=== PATIENT | male | born 1985 | race African-American/Black ===

== ENCOUNTER 2016-06-20 22:06 | Emergency (ER) | payer SELFPAY ==
[~2016-06-20] VITALS: Ht 170.2 cm; Wt 88.0 kg
[~2016-06-20 22:06] MED LIST: PERC5TAB12 PO
[2016-06-20 22:08] VITALS: BP 153/96; PULSE 82; RESP 16; TEMP 98.1; O2SAT 96
[2016-06-20] MEDS ORDERED: SODIUM CHLOR 0.9% 1000 ML INJ 1,000 ML IV ONE (22:31)
[2016-06-20] MEDS ORDERED: MORPHINE SULFATE 8 MG/ML INJ IV PUSH ONE (22:45)
[2016-06-20] MEDS ORDERED: SODIUM CHLORIDE 0.9% FLUSH 5 ML FLUSH IVF PRN (22:45)
[2016-06-20 22:56] VITALS: RESP 18; O2SAT 98
[2016-06-20 23:04] VITALS: RESP 16
[2016-06-20 23:22] LABS: AUTOMATED NEUTROPHIL # 4.2 TH/MM3 (1.8-7.7); BASOPHIL % 0.5 % (0.0-2.0); BLOOD, URINE NEG (NEG); COMMENT (UR) CULT NOT INDICATED; CULTURE IF INDICATED CULT NOT INDICATED; EOSINOPHIL # 0.2 TH/MM3 (0-0.4); EOSINOPHIL % 2.5 % (0.0-4.0); GLUCOSE,URINE NEG (NEG); HEMATOCRIT 43.4 % (39.0-51.0); HEMO FLAGS DIFF FINAL; KETONE, URINE NEG (NEG); LYMPH % 34.9 % (9.0-44.0); LYMPHOCYTE # 2.7 TH/MM3 (1.0-4.8); MEAN CELL VOLUME 80.2 FL (80.0-100.0); MEAN CORPUSCULAR HEMOGLOBIN 27.3 PG (27.0-34.0); MONO % 8.1 % (0.0-8.0); MUCUS URINE FEW /lpf (OCC); NITRITE,URINE NEG (NEG); PLATELET COUNT 357 TH/MM3 (150-450); RED CELL DISTRIBUTION WIDTH 14.3 % (11.6-17.2); RETIC % 1.3 % (0.4-3.0); REVIEW FLAG FINAL; URINE COLOR LIGHT-YELLOW (YELLW/STRAW); WHITE BLOOD COUNT 7.8 TH/MM3 (4.0-11.0)
--- NOTE | 2016-06-20 23:33 | RADRPT ---
EXAM DATE/TIME: 06/20/2016 23:23 [facility] COMPARISON: CHEST PA & LAT, April 08, 2016, 16:22. INDICATIONS : Lifelong right flank pain worse during a Sickle Cell Crisis. MEDICAL HISTORY : Sickle Cell disease. SURGICAL HISTORY : None. ENCOUNTER: Initial ACUITY: >1 year PAIN SCORE: 5/10 LOCATION: Right flank FINDINGS: PA and lateral views of the chest demonstrate the lungs to be symmetrically aerated without evidence of mass, infiltrate or effusion. The cardiomediastinal contours are unremarkable. Osseous structure s are intact. CONCLUSION: No acute cardiopulmonary disease. Cornelius Kerr MD on June 20, 2016 at 23:31 Board Certified Radiologist. This report was verified electronically.
[2016-06-20 23:39] LABS: ALT (GPT) 19 U/L (12-78); ANION GAP 7 MEQ/L (5-15); AST (GOT) 10 U/L (15-37); BICARBONATE 28.8 MEQ/L (21.0-32.0); BLOOD UREA NITROGEN 8 MG/DL (7-18); CHLORIDE 108 MEQ/L (98-107); GLOMERULAR FILTRATION RATE 125 ML/MIN (>89); POTASSIUM 3.7 MEQ/L (3.5-5.1); SODIUM (NA) 144 MEQ/L (136-145)
[2016-06-20 23:41] LABS: ALKALINE PHOSPHATASE 107 U/L (45-117); TOTAL BILIRUBIN ADULT 0.2 MG/DL (0.2-1.0)
--- NOTE | 2016-06-20 23:45 | RADRPT ---
EXAM DATE/TIME: 06/20/2016 23:06 [facility] COMPARISON: No previous studies available for comparison. INDICATIONS : Right upper quadrant pain. MEDICAL HISTORY : Sickle Cell disease. Asthma. SURGICAL HISTORY : None. ENCOUNTER: Initial ACUITY: 1 day PAIN SCORE: 6/10 LOCATION: Right upper quadrant MEASUREMENTS: LIVER: 16.8 cm length COMMON DUCT: 5 mm RIGHT KIDNEY: 10.1 x 5.1 x 5.4 cm FINDINGS: LIVER: There is a focal hyperechogenic area in the left lobe which demonstrates acoustic shadowing and measu res 1.3 11.4 x 1.3 cm. No flow seen on color Doppler. The remainder of the hepatic parenchyma has a homogeneous echotexture. Hepatopedal flow in the portal vein. No dilation of the biliary ducts. COMMON DUCT: No intraluminal mass or stone visualized. GALLBLADDER: Contains no stones, demonstrates no wall thickening or pericholecystic fluid. PANCREAS: The visualized portions of the head and body has a fairly homogeneous echotexture. RIGHT KIDNEY: No evidence of hydronephrosis, stone, or mass. CONCLUSION: 1. No gallstones seen. 2. Focal echogenic and shadowing area in the left lobe liver of uncertain significance. Cornelius Kerr MD on June 20, 2016 at 23:41 Board Certified Radiologist. This report was verified electronically.
--- NOTE | 2016-06-20 23:47 | PD ---
HPI Chief Complaint: Sickle Cell Time Seen by Provider: 22:31 Travel History International Travel<30 days: No Contact w/Intl Traveler<30days: No Traveled to known affect area: No History of Present Illness HPI 31-year-old male presents with right sided upper abdominal pain and pain to his legs that feels typical of his sickle cell disease. He states he gets triggered when the weather is cold. He denies other concurrent complaints at this time. Quality pain is sharp. Severity is moderate. He denies specific modifying factors. It is been present over the past couple days. PFSH Past Medical History Asthma: Yes Respiratory: Yes (ASTHMA) Immunizations Current: No Sickle Cell Disease: Yes Past Surgical History Surgical History: No Previous Surgery Social History Alcohol Use: Yes (on occasion) Tobacco Use: Yes (0.5 ppd) Substance Use: No Allergies-Medications (Allergen,Severity, Reaction): Coded Allergies: No Known Allergies (Unverified , 06/20/16) Reported Meds & Prescriptions Reported Meds & Active Scripts Active Review of Systems Except as stated in HPI: all other systems reviewed are Neg Physical Exam Narrative GENERAL: Well-nourished, well-developed patient. SKIN: Warm and dry. HEAD: Normocephalic and atraumatic. EYES: No injection or drainage. ENT: No nasal drainage noted. NECK: Supple, trachea midline. CARDIOVASCULAR: Regular rate and rhythm RESPIRATORY: Breath sounds equal bilaterally. No accessory muscle use. GASTROINTESTINAL: Abdomen soft, mild tenderness right upper quadrant, nondistended. No rebound or guarding EXTREMITIES: No edema. NEUROLOGICAL: Awake and alert. Motor and sensory grossly within normal limits. Normal speech. Data Data Last Documented VS Vital Signs Date Time Temp Pulse Resp B/P Pulse Ox O2 Delivery O2 Flow Rate FiO2 06/20/16 23:04 16 06/20/16 22:56 98 Room Air 06/20/16 22:08 98.1 82 153/96 Orders Complete Blood Count With Diff (06/20/16 22:31) Retic Count (06/20/16 22:31) Ecg Monitoring (06/20/16 22:31) Iv Access Insert/Monitor (06/20/16 22:31) Oximetry (06/20/16 22:31) Sodium Chloride 0.9% Flush (Ns Flush) (06/20/16 22:45) Sodium Chlor 0.9% 1000 Ml Inj (Ns 1000 M (06/20/16 22:31) Morphine Inj (Morphine Inj) (06/20/16 22:45) Comprehensive Metabolic Panel (06/20/16 22:36) Urinalysis - C+S If Indicated (06/20/16 22:36) Lipase (06/20/16 22:36) Us Abdomen Gallbladder (06/20/16 ) Chest, Pa & Lat (06/20/16 ) Labs Laboratory Tests Test 06/20/16 22:55 White Blood Count 7.8 TH/MM3 Red Blood Count 5.40 MIL/MM3 Hemoglobin 14.7 GM/DL Hematocrit 43.4 % Mean Corpuscular Volume 80.2 FL Mean Corpuscular Hemoglobin 27.3 PG Mean Corpuscular Hemoglobin 34.0 % Concent Red Cell Distribution Width 14.3 % Platelet Count 357 TH/MM3 Mean Platelet Volume 8.4 FL Neutrophils (%) (Auto) 54.0 % Lymphocytes (%) (Auto) 34.9 % Monocytes (%) (Auto) 8.1 % Eosinophils (%) (Auto) 2.5 % Basophils (%) (Auto) 0.5 % Neutrophils # (Auto) 4.2 TH/MM3 Lymphocytes # (Auto) 2.7 TH/MM3 Monocytes # (Auto) 0.6 TH/MM3 Eosinophils # (Auto) 0.2 TH/MM3 Basophils # (Auto) 0.0 TH/MM3 CBC Comment DIFF FINAL Differential Comment Reticulocyte Count 1.3 % Absolute Reticulocyte Count 67.3 MIL/L Urine Color LIGHT-YELLOW Urine Turbidity CLEAR Urine pH 6.0 Urine Specific [place] 1.011 Urine Protein NEG mg/dL Urine Glucose (UA) NEG mg/dL Urine Ketones NEG mg/dL Urine Occult Blood NEG Urine Nitrite NEG Urine Bilirubin NEG Urine Urobilinogen LESS THAN 2.0 MG/DL Urine Leukocyte Esterase NEG Urine RBC LESS THAN 1 /hpf Urine WBC 1 /hpf Urine Mucus FEW /lpf Microscopic Urinalysis Comment CULT NOT INDICATED Sodium Level 144 MEQ/L Potassium Level 3.7 MEQ/L Chloride Level 108 MEQ/L Carbon Dioxide Level 28.8 MEQ/L Anion Gap 7 MEQ/L Blood Urea Nitrogen 8 MG/DL Creatinine 0.86 MG/DL Estimat Glomerular Filtration 125 ML/MIN Rate Random Glucose 101 MG/DL Calcium Level 8.7 MG/DL Total Bilirubin 0.2 MG/DL Aspartate Amino Transf 10 U/L (AST/SGOT) Alanine Aminotransferase 19 U/L (ALT/SGPT) Alkaline Phosphatase 107 U/L Total Protein 7.6 GM/DL Albumin 4.0 GM/DL Lipase 304 U/L MDM Medical Decision Making Medical Screen Exam Complete: Yes Emergency Medical Condition: Yes Medical Record Reviewed: Yes (past history confirmed) Interpretation(s) CBC & BMP Diagram 06/20/16 22:55 Last 24 hours Impressions Gall Bladder Ultrasound 06/20/16 0000 Draft Impressions: Service Date/Time: Monday, June 20, 2016 23:06 - CONCLUSION: 1. No gallstones seen. 2. Focal echogenic and shadowing area in the left lobe liver of uncertain significance. Cornelius Kerr MD Chest X-Ray 06/20/16 0000 Signed Impressions: Service Date/Time: Monday, June 20, 2016 23:23 - CONCLUSION: No acute cardiopulmonary disease. Cornelius Kerr MD Given copy of gallbladder ultrasound for follow-up Differential Diagnosis Vaso-occlusive crisis, UTI, gallstone, cholecystitis, musculoskeletal... Narrative Course Will check blood work, urinalysis, x-ray, gallbladder ultrasound and dose with morphine and reevaluate ed workup no acute, Patient denies any new complaints and states that they are feeling better. provide with lortab for further pain control, all questions answered. Patient knows that follow up is incumbent on them and to return to the emergency room immediately if new or worsening symptoms develop. Patient given strict return precautions, vitals reviewed and are normal, agrees to further workup as an outpatient. Diagnosis Primary Impression: Abdominal pain Qualified Code: R10.11 - Right upper quadrant abdominal pain Additional Impression: Sickle cell anemia with pain Patient Instructions: General Instructions, Narcotic given in the ED Additional Instructions: set up a primary, return as needed, lortab as needed for severe pain-don't take while driving Med/Other Pt SpecificInfo: Prescription(s) given Scripts Hydrocodone-Acetaminophen (Lortab)5-325 Mg Tab1 Tab PO Q6H PRN (PAIN) #15 TAB Prov:Chelsey Treviño MD 06/20/16 Disposition: 01 DISCHARGE HOME Condition: Stable Chelsey Treviño MD Jun 20, 2016 23:47
[2016-06-20] MEDS ORDERED: HYDR-3533 PO (23:53)
[2016-06-21] MEDS ORDERED: ACETAMINOPHEN/HYDROcodone 325 MG/5 MG TAB PO ONE
== END 2016-06-21 00:06 | disposition home or self-care (01) ==
LOC: NEPC 22:06
DX: R10.11 Right upper quadrant pain (principal); D57.219 Sickle-cell/Hb-C disease with crisis, unspecified; F17.210 Nicotine dependence, cigarettes, uncomplicated
CPT/HCPCS: 71020; 76705; 80053; 81001; 83690; 85025; 85044; 96361; 96374; 99284; J2270; J7030

== ENCOUNTER 2016-06-26 16:09 | Emergency (ER) | payer SELFPAY ==
[~2016-06-26] VITALS: Ht 172.7 cm; Wt 89.0 kg
[~2016-06-26 16:09] MED LIST changes: +HYDR-3533 PO; -PERC5TAB12 PO
[2016-06-26 16:12] VITALS: BP 139/85; PULSE 98; RESP 20; TEMP 98; O2SAT 99
[2016-06-26 16:30] VITALS: BP 145/85; PULSE 98; RESP 20; O2SAT 99
[2016-06-26] MEDS ORDERED: SODIUM CHLOR 0.9% 1000 ML INJ 1,000 ML IV SCH (17:06)
[2016-06-26] MEDS ORDERED: MORPHINE SULFATE 4 MG/ML INJ IV PUSH ONE (17:15)
[2016-06-26] MEDS ORDERED: ONDANSETRON HCL 4 MG/2 ML VIAL IVP ONE (17:15)
--- NOTE | 2016-06-26 17:20 | RADRPT ---
EXAM DATE/TIME: 06/26/2016 17:13 [facility] COMPARISON: No previous studies available for comparison. INDICATIONS : Cough and right sided chest pain. MEDICAL HISTORY : Sickle cell disease. SURGICAL HISTORY : None. ENCOUNTER: Initial ACUITY: 1 week PAIN SCORE: 4/10 LOCATION: chest FINDINGS: A single view of the chest demonstrates the lungs to be symmetrically aerated without evidence of mas s, infiltrate or effusion. The cardiomediastinal contours are unremarkable. Osseous structures are intact. CONCLUSION: No acute disease. Bradley Case MD on June 26, 2016 at 17:18 Board Certified Radiologist. This report was verified electronically.
[2016-06-26 17:30] VITALS: RESP 20
--- NOTE | 2016-06-26 17:35 | PD ---
HPI Chief Complaint: Abdominal Pain Time Seen by Provider: 17:30 Travel History International Travel<30 days: No Contact w/Intl Traveler<30days: No Traveled to known affect area: No History of Present Illness HPI 31-year-old male that presents to the ED for evaluation of right upper quadrant abdominal pain as well as sickle cell pain crisis. Per patient he has pain in his legs as well as on his right lower quadrant. Per patient he doesn't know this is related to the cough that he was seen here a couple days ago for the same and had an ultrasound that shows some fluid in his gallbladder. Per patient she's never been told this before. Per patient he does have some cough and runny nose. No fevers chills or sweats. No headache. No chest pain but he does state that the cough makes the right upper quadrant pain worse. Denies any problems with bowel movement or urine. Denies any nausea or vomiting. 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 He has not seen anybody since been discharged. He has no allergies to medication. Per patient his pain is 7 out of 10. Denies any other symptom at this time. Denies any trauma. Denies anything new. Patient does have kids at home that are sick. He states that he himself had the flu about 6 months ago. PFSH Past Medical History Asthma: Yes Diminished Hearing: No Respiratory: Yes (ASTHMA) Immunizations Current: No Sickle Cell Disease: Yes Tetanus Vaccination: > 5 Years Influenza Vaccination: No Past Surgical History Surgical History: No Previous Surgery Social History Alcohol Use: Yes (on occasion) Tobacco Use: Yes (1/2 ppd) Substance Use: No Allergies-Medications (Allergen,Severity, Reaction): Coded Allergies: No Known Allergies (Unverified , 06/26/16) Reported Meds & Prescriptions Reported Meds & Active Scripts Active Tessalon Perles (Benzonatate) 100 Mg Cap 100 Mg PO TID PRN Azithromycin 250 Mg Tab 250 Mg PO DIRECTED Take 2 tabs (500 mg) on day 1 then 1 tab daily x 4 days. Lortab (Hydrocodone-Acetaminophen) 5-325 Mg Tab 1 Tab PO Q6H PRN Review of Systems Except as stated in HPI: all other systems reviewed are Neg Physical Exam Narrative GENERAL: SKIN: Warm and dry. HEAD: Atraumatic. Normocephalic. EYES: Pupils equal and round. No scleral icterus. No injection or drainage. ENT: No nasal bleeding or discharge. Mucous membranes pink and moist. Tongue is midline. No uvula deviation. NECK: Trachea midline. No JVD. CARDIOVASCULAR: Regular rate and rhythm. No murmurs, S3, S4. RESPIRATORY: No accessory muscle use. Clear to auscultation. Breath sounds equal bilaterally. GASTROINTESTINAL: Abdomen soft, patient does have some tenderness to palpation of the right upper quadrant but no obvious Jackson sign., nondistended. Hepatic and splenic margins not palpable. MUSCULOSKELETAL: Extremities without clubbing, cyanosis, or edema. No obvious deformities. Full range of motion of the upper and lower extremities bilaterally. 2+ pulses bilaterally. NEUROLOGICAL: Awake and alert. No obvious cranial nerve deficits. Motor grossly within normal limits. Five out of 5 muscle strength in the arms and legs. Normal speech. PSYCHIATRIC: Appropriate mood and affect; insight and judgment normal. Data Data Last Documented VS Vital Signs Date Time Temp Pulse Resp B/P Pulse Ox O2 Delivery O2 Flow Rate FiO2 06/26/16 17:30 20 06/26/16 16:30 98 145/85 99 Room Air 06/26/16 16:12 98.0 Orders Electrocardiogram (06/26/16 17:02) Complete Blood Count With Diff (06/26/16 17:02) Comprehensive Metabolic Panel (06/26/16 17:02) Prothrombin Time / Inr (Pt) (06/26/16 17:02) Act Partial Throm Time (Ptt) (06/26/16 17:02) Lipase (06/26/16 17:02) Urinalysis - C+S If Indicated (06/26/16 17:02) Chest, Single Ap (06/26/16 17:02) Iv Access Insert/Monitor (06/26/16 17:02) Ecg Monitoring (06/26/16 17:02) Oximetry (06/26/16 17:02) Retic Count (06/26/16 17:02) Influenzae A/B Antigen (06/26/16 17:06) Morphine Inj (Morphine Inj) (06/26/16 17:15) Ondansetron Inj (Zofran Inj) (06/26/16 17:15) Sodium Chlor 0.9% 1000 Ml Inj (Ns 1000 M (06/26/16 17:06) Ct Abd/Pel W/O Iv Contrast (06/26/16 17:39) Ketorolac Inj (Toradol Inj) (06/26/16 18:15) Labs Laboratory Tests Test 06/26/16 06/26/16 17:20 17:40 White Blood Count 7.2 TH/MM3 Red Blood Count 5.44 MIL/MM3 Hemoglobin 15.2 GM/DL Hematocrit 43.6 % Mean Corpuscular Volume 80.1 FL Mean Corpuscular Hemoglobin 27.9 PG Mean Corpuscular Hemoglobin 34.8 % Concent Red Cell Distribution Width 14.3 % Platelet Count 412 TH/MM3 Mean Platelet Volume 8.7 FL Neutrophils (%) (Auto) % Lymphocytes (%) (Auto) % Monocytes (%) (Auto) % Eosinophils (%) (Auto) % Basophils (%) (Auto) % Neutrophils # (Auto) TH/MM3 Lymphocytes # (Auto) TH/MM3 Monocytes # (Auto) TH/MM3 Eosinophils # (Auto) TH/MM3 Basophils # (Auto) TH/MM3 CBC Comment AUTO DIFF Reticulocyte Count 1.2 % Absolute Reticulocyte Count 66.2 MIL/L Prothrombin Time 11.5 SEC Prothromb Time International 1.0 RATIO Ratio Activated Partial 27.6 SEC Thromboplast Time Sodium Level 143 MEQ/L Potassium Level 3.7 MEQ/L Chloride Level 105 MEQ/L Carbon Dioxide Level 31.1 MEQ/L Anion Gap 7 MEQ/L Blood Urea Nitrogen 12 MG/DL Creatinine 0.99 MG/DL Estimat Glomerular Filtration 106 ML/MIN Rate Random Glucose 106 MG/DL Calcium Level 9.4 MG/DL Total Bilirubin 0.4 MG/DL Aspartate Amino Transf 13 U/L (AST/SGOT) Alanine Aminotransferase 18 U/L (ALT/SGPT) Alkaline Phosphatase 108 U/L Total Protein 8.1 GM/DL Albumin 4.2 GM/DL Lipase 120 U/L Urine Color YELLOW Urine Turbidity CLEAR Urine pH 6.5 Urine Specific [place] 1.024 Urine Protein TRACE mg/dL Urine Glucose (UA) NEG mg/dL Urine Ketones NEG mg/dL Urine Occult Blood NEG Urine Nitrite NEG Urine Bilirubin NEG Urine Urobilinogen 2.0 MG/DL Urine Leukocyte Esterase NEG Urine WBC 1 /hpf Urine Mucus FEW /lpf Microscopic Urinalysis Comment CULT NOT INDICATED MDM Medical Decision Making Medical Screen Exam Complete: Yes Emergency Medical Condition: Yes Medical Record Reviewed: Yes Interpretation(s) CBC & BMP Diagram 06/26/16 17:20 LFTS and lipase WNL ret count WNL EKG shows sinus rhythm with no sign of ischemia or arrythmia. Last Impressions Abdomen/Pelvis CT 06/26/16 1739 Signed Impressions: Service Date/Time: Sunday, June 26, 2016 17:58 - CONCLUSION: 1. No acute abnormality is seen. 2. 0.8 cm hypodensity in the liver. This is nonspecific. Statistically, it likely resents a cyst or hemangioma. 3. Suspected scarring or atelectasis at the right lateral lung base. Parviz Anderson MD Chest X-Ray 06/26/16 1702 Signed Impressions: Service Date/Time: Sunday, June 26, 2016 17:13 - CONCLUSION: No acute disease. Bradley Case MD UA normal influenza WNL Differential Diagnosis Sickle cell crisis versus sickle cell pain versus abdominal pain versus bronchitis versus sinusitis versus pneumonia Narrative Course 31-year-old male that presents to the ED for evaluation of sickle cell crisis. Patient was properly examined and was found to have signs and symptoms consistent appears to be sickle cell. At this time I do recommend imaging and labs. Case discussed in my attending who recommends CT of the abdomen as well. Patient was started on IV fluids, pain medication given. Labs and imaging showed Diagnosis Primary Impression: Sickle cell crisis Additional Impressions: Abdominal pain Qualified Code: R10.11 - Right upper quadrant abdominal pain Bronchitis Patient Instructions: Narcotic given in the ED, General Instructions Additional Instructions: Motrin and Tylenol for pain and fever. Cough drops for cough as needed. Drink plenty of fluids. Follow-up with PCP. See ED for worsening symptoms. Do not drink or drive while taking pain meds. Take meds as prescribed. Med/Other Pt SpecificInfo: Prescription(s) given Scripts Benzonatate (Tessalon Perles)100 Mg [id number] Mg PO TID PRN (COUGH) #20 CAP Prov:Patricio Miner MD 06/26/16 Azithromycin 250 Mg [id number] Mg PO DIRECTED #6 TAB Take 2 tabs (500 mg) on day 1 then 1 tab daily x 4 days. Prov:Patricio Miner MD 06/26/16 Hydrocodone-Acetaminophen (Lortab)5-325 Mg Tab1 Tab PO Q6H PRN (PAIN) #20 TAB Prov:Patricio Miner MD 06/26/16 Disposition: 01 DISCHARGE HOME Condition: Stable [place] New Jun 26, 2016 17:35
[2016-06-26 17:40] LABS: APTT (PATIENT) 27.6 SEC (24.3-30.1); PROTHROMBIN TIME - PATIENT 11.5 SEC (9.8-11.6)
[2016-06-26 17:41] LABS: HEMATOCRIT 43.6 % (39.0-51.0); MEAN CELL VOLUME 80.1 FL (80.0-100.0); MEAN CORPUSCULAR HEMOGLOBIN 27.9 PG (27.0-34.0); MEAN CORPUSCULAR HGB CONC 34.8 % (32.0-36.0); PLATELET COUNT 412 TH/MM3 (150-450); RED BLOOD COUNT 5.44 MIL/MM3 (4.50-5.90); RED CELL DISTRIBUTION WIDTH 14.3 % (11.6-17.2); RETIC % 1.2 % (0.4-3.0); WHITE BLOOD COUNT 7.2 TH/MM3 (4.0-11.0)
[2016-06-26 17:45] LABS: HEMO FLAGS AUTO DIFF
[2016-06-26 18:01] LABS: BLOOD, URINE NEG (NEG); COMMENT (UR) CULT NOT INDICATED; CULTURE IF INDICATED CULT NOT INDICATED; GLUCOSE,URINE NEG (NEG); KETONE, URINE NEG (NEG); MUCUS URINE FEW /lpf (OCC); NITRITE,URINE NEG (NEG); PH, URINE 6.5 (5.0-8.5); URINE COLOR YELLOW (YELLW/STRAW)
[2016-06-26 18:11] LABS: ALKALINE PHOSPHATASE 108 U/L (45-117); TOTAL BILIRUBIN ADULT 0.4 MG/DL (0.2-1.0)
[2016-06-26 18:13] LABS: ALT (GPT) 18 U/L (12-78); ANION GAP 7 MEQ/L (5-15); AST (GOT) 13 U/L (15-37); BICARBONATE 31.1 MEQ/L (21.0-32.0); BLOOD UREA NITROGEN 12 MG/DL (7-18); CHLORIDE 105 MEQ/L (98-107); GLOMERULAR FILTRATION RATE 106 ML/MIN (>89); SODIUM (NA) 143 MEQ/L (136-145)
[2016-06-26 18:14] LABS: POTASSIUM 3.7 MEQ/L (3.5-5.1)
[2016-06-26] MEDS ORDERED: KETOROLAC TROMETHAMINE 30 MG/ML (IVP) VIAL IV PUSH ONE (18:15)
--- NOTE | 2016-06-26 18:36 | RADRPT ---
EXAM DATE/TIME: 06/26/2016 17:58 [facility] COMPARISON: No previous studies available for comparison. INDICATIONS : Abdominal pain / sickle cell crisis. ORAL CONTRAST: No oral contrast ingested. RADIATION DOSE: 9.96 CTDIvol (mGy) MEDICAL HISTORY : Sickle cell disease. Asthma SURGICAL HISTORY : None. ENCOUNTER: Initial ACUITY: 1 day PAIN SCALE: 6/10 LOCATION: abdomen TECHNIQUE: Volumetric scanning of the abdomen and pelvis was performed. Using automated exposure control and ad justment of the mA and/or kV according to patient size, radiation dose was kept as low as reasonably achievable to obtain optimal diagnostic quality images. FINDINGS: LOWER LUNGS: There is linear increased density at the lateral right base likely related to scarring or atelectasis . LIVER: There is an 8 mm hypodensity in the right lobe of the liver likely representing a cyst or hemangioma. SPLEEN: Normal size without lesion. PANCREAS: Within normal limits. KIDNEYS: Normal in size and shape. There is no mass, stone, or hydronephrosis. ADRENAL GLANDS: Within normal limits. VASCULAR: There is no aortic aneurysm. BOWEL/MESENTERY: The stomach, small bowel, and colon demonstrate no acute abnormality. There is no free intraperitone al air or fluid. ABDOMINAL WALL: Within normal limits. RETROPERITONEUM: There is no lymphadenopathy. BLADDER: No wall thickening or mass. REPRODUCTIVE: Within normal limits. INGUINAL: There is no lymphadenopathy or hernia. MUSCULOSKELETAL: Within normal limits for patient age. CONCLUSION: 1. No acute abnormality is seen. 2. 0.8 cm hypodensity in the liver. This is nonspecific. Statistically, it likely resents a cyst or h emangioma. 3. Suspected scarring or atelectasis at the right lateral lung base. Parviz Anderson MD on June 26, 2016 at 18:31 Board Certified Radiologist. This report was verified electronically.
[2016-06-26] MEDS ORDERED: AZIT250T3 PO (18:44)
[2016-06-26] MEDS ORDERED: BENZ100 PO (18:44)
[2016-06-26] MEDS ORDERED: HYDR-3533 PO (18:44)
[2016-06-26 19:06] VITALS: BP 131/81
[2016-06-26 19:58] LABS: BASOPHILS 1 % (0-2); NEUTROPHIL # MANUAL DIFF 5.4 TH/MM3 (1.8-7.7); OVALOCYTES 1+ (NORMAL); POLYS (SEG NEUTROPHILS) 75 % (16-70); WBC DIFF SAMPLE 100
[2016-06-26 19:59] LABS: PLATELET ESTIMATE SMEAR HIGH (NORMAL); PLATELET MORPHOLOGY NORMAL (NORMAL); SCAN/DIFF FINAL DIFF MANUAL; STOMATOCYTES 1+ (NORMAL)
--- NOTE | 2016-06-27 14:14 | EKG ---
Date Performed: 06/26/2016 Time Performed: 17:33:36 PTAGE: 31 years EKG: Sinus rhythm NONSPECIFIC ST & T-WAVE ABNORMALITY BORDERLINE ECG NO PREVIOUS TRACING DOCTOR: Narayan Dhillon Interpretating Date/Time 06/27/2016 14:10:56
== END 2016-06-26 19:09 | disposition home or self-care (01) ==
LOC: NEPC 16:09
DX: D57.00 Hb-SS disease with crisis, unspecified (principal); R10.11 Right upper quadrant pain; J45.909 Unspecified asthma, uncomplicated; F17.200 Nicotine dependence, unspecified, uncomplicated
CPT/HCPCS: 71010; 74176; 80053; 81001; 83690; 85007; 85027; 85044; 85610; 85730; 87804; 93005; 96361; 96374; 96375; 99284; J1885; J2270; J2405; J7030

== ENCOUNTER 2016-08-28 16:10 | Emergency (ER) | payer SELFPAY ==
[~2016-08-28] VITALS: Ht 172.7 cm; Wt 95.0 kg
[~2016-08-28 16:10] MED LIST changes: +AZIT250T3 PO; +BENZ100 PO
[2016-08-28 16:12] VITALS: BP 154/100; PULSE 84; RESP 20; TEMP 97.9; O2SAT 100
[2016-08-28] MEDS ORDERED: SODIUM CHLORIDE 0.9% FLUSH 5 ML FLUSH IVF PRN (16:30)
[2016-08-28 16:47] VITALS: RESP 16; O2SAT 100
--- NOTE | 2016-08-28 16:50 | PD ---
HPI Chief Complaint: Sickle Cell Time Seen by Provider: 16:50 Travel History International Travel<30 days: No Contact w/Intl Traveler<30days: No Traveled to known affect area: No History of Present Illness HPI 31-year-old male presents to the emergency department for evaluation of bilateral leg pain and right rib pain that began early this morning when he woke up. Denies any injuries or trauma. Describes the pain as aching and constant. Denies any aggravating or alleviating factors. The patient states that he thinks he is having a flareup of sickle cell disease. 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 States that he was diagnosed as a baby. He does not follow up with a nitrating acid mixer. He denies any fever, chills, nausea, vomiting, lightheadedness, dizziness, chest pain, shortness of breath, abdominal pain. Denies any other medical conditions. States he took ibuprofen earlier with minimal improvement of symptoms. No other complaints. PCP is in [facility] Past Medical History Asthma: Yes Diminished Hearing: No Respiratory: Yes (ASTHMA) Immunizations Current: No Sickle Cell Disease: Yes Social History Alcohol Use: Yes (on occasion) Tobacco Use: Yes (1/2 ppd) Substance Use: No Allergies-Medications (Allergen,Severity, Reaction): Coded Allergies: No Known Allergies (Unverified , 08/28/16) Reported Meds & Prescriptions Reported Meds & Active Scripts Active Naproxen 500 Mg Tab 500 Mg PO BID 7 Days Review of Systems Except as stated in HPI: all other systems reviewed are Neg Physical Exam Narrative GENERAL: Well-nourished and well-developed pleasant male patient in no acute distress who is nontoxic appearing. SKIN: Warm and dry. HEAD: Normocephalic and atraumatic. EYES: No injection, drainage, or hyphema noted. PERRLA. EOMI. ENT: No nasal drainage noted. Oropharynx is clear. NECK: Supple and the trachea is midline. CARDIOVASCULAR: Regular rate and rhythm. RESPIRATORY: Breath sounds are equal bilaterally with no accessory muscle use, wheezing, rhonchi, or crackles. GASTROINTESTINAL: Abdomen is soft, non-tender, and nondistended. MUSCULOSKELETAL: No obvious deformities, swelling, cyanosis, or ecchymosis is present throughout the upper and lower extremities. Patient has full range of motion without any signs of neurovascular compromise. NEUROLOGICAL: Awake, alert, and oriented. Normal speech and gait. Cranial nerves are grossly intact. Data Data Last Documented VS Vital Signs Date Time Temp Pulse Resp B/P Pulse Ox O2 Delivery O2 Flow Rate FiO2 08/28/16 16:47 16 100 Room Air 08/28/16 16:12 97.9 84 154/100 Orders Complete Blood Count With Diff (08/28/16 16:26) Comprehensive Metabolic Panel (08/28/16 16:26) Retic Count (08/28/16 16:26) Ecg Monitoring (08/28/16 16:26) Iv Access Insert/Monitor (08/28/16 16:26) Oximetry (08/28/16 16:26) Sodium Chloride 0.9% Flush (Ns Flush) (08/28/16 16:30) Chest, Single Ap (08/28/16 16:38) Hemoglobin Electrophoresis (08/28/16 16:52) Ketorolac Inj (Toradol Inj) (08/28/16 17:00) Creatine Kinase (Cpk) (08/28/16 18:48) Labs Laboratory Tests Test 08/28/16 16:45 White Blood Count 6.9 TH/MM3 Red Blood Count 5.51 MIL/MM3 Hemoglobin 15.3 GM/DL Hematocrit 44.2 % Mean Corpuscular Volume 80.2 FL Mean Corpuscular Hemoglobin 27.9 PG Mean Corpuscular Hemoglobin 34.7 % Concent Red Cell Distribution Width 13.5 % Platelet Count 447 TH/MM3 Mean Platelet Volume 8.3 FL Neutrophils (%) (Auto) 65.4 % Lymphocytes (%) (Auto) 26.4 % Monocytes (%) (Auto) 5.6 % Eosinophils (%) (Auto) 2.0 % Basophils (%) (Auto) 0.6 % Neutrophils # (Auto) 4.5 TH/MM3 Lymphocytes # (Auto) 1.8 TH/MM3 Monocytes # (Auto) 0.4 TH/MM3 Eosinophils # (Auto) 0.1 TH/MM3 Basophils # (Auto) 0.0 TH/MM3 CBC Comment DIFF FINAL Differential Comment Reticulocyte Count 0.6 % Absolute Reticulocyte Count 34.9 MIL/L Sodium Level 139 MEQ/L Potassium Level 3.9 MEQ/L Chloride Level 104 MEQ/L Carbon Dioxide Level 28.4 MEQ/L Anion Gap 7 MEQ/L Blood Urea Nitrogen 10 MG/DL Creatinine 1.05 MG/DL Estimat Glomerular Filtration 99 ML/MIN Rate Random Glucose 148 MG/DL Calcium Level 8.8 MG/DL Total Bilirubin 0.3 MG/DL Aspartate Amino Transf 11 U/L (AST/SGOT) Alanine Aminotransferase 23 U/L (ALT/SGPT) Alkaline Phosphatase 110 U/L Total Creatine Kinase 202 U/L Total Protein 8.1 GM/DL Albumin 4.2 GM/DL MDM Medical Decision Making Medical Screen Exam Complete: Yes Emergency Medical Condition: Yes Differential Diagnosis Sickle cell trait versus sickle cell disease versus body aches versus drug- seeking behavior Narrative Course 33-year-old male presents to the emergency department for evaluation of bilateral leg pain and right rib pain that began this morning. He is attributing this to a sickle cell flare up. Patient is afebrile, vital signs are stable. Physical examination is unremarkable. The patient does not appear to be in any distress, resting comfortably in bed. I did look the patient up on [facility] for drug prescription monitoring program showing that he has filled 39 prescriptions from 23 different physicians in the last year. Since he has been seen here in our emergency department none of his CBCs have shown anemia. He did have a positive sickle cell screen but there was never an electrophoresis performed. We'll order the electrophoresis today. My attending physician Dr. Payne also saw the patient and we agree that there are some red flags concerning for drug-seeking behavior. Ultimately we need to find a conclusive diagnosis of sickle cell. The patient will be given Toradol 30 mg IV and we'll do lab work today. CBC is unremarkable. Reticulocyte count is within normal limits. BMP is unremarkable. CPK unremarkable. Patient will be discharged with NSAIDs. Advised that we will call him with the results of electrophoresis. Patient verbalizes understanding. I discussed the case with my attending physician Dr. Payne who is aware of the patients history, physical examination findings, and treatment plan. Diagnosis Primary Impression: Leg pain, bilateral Referrals: Primary Care Physician Patient Instructions: General Instructions, Leg Pain (ED) Additional Instructions: Take medications as prescribed with food and a full glass of water. Follow-up with your Primary Care Physician. Return to the ED for any acute worsening of symptoms. Med/Other Pt SpecificInfo: Prescription(s) given Scripts Naproxen 500 Mg Geo617 Mg PO BID 7 Days Ref 0 Prov:Yesy Payne MD 08/28/16 Disposition: 01 DISCHARGE HOME Condition: Stable Meghan Bhat Aug 28, 2016 16:50
[2016-08-28] MEDS ORDERED: KETOROLAC TROMETHAMINE 30 MG/ML (IVP) VIAL IV PUSH ONE (17:00)
[2016-08-28 17:15] LABS: AUTOMATED NEUTROPHIL # 4.5 TH/MM3 (1.8-7.7); BASOPHIL % 0.6 % (0.0-2.0); EOSINOPHIL # 0.1 TH/MM3 (0-0.4); HEMATOCRIT 44.2 % (39.0-51.0); HEMO FLAGS DIFF FINAL; LYMPH % 26.4 % (9.0-44.0); LYMPHOCYTE # 1.8 TH/MM3 (1.0-4.8); MEAN CELL VOLUME 80.2 FL (80.0-100.0); MEAN CORPUSCULAR HEMOGLOBIN 27.9 PG (27.0-34.0); MEAN CORPUSCULAR HGB CONC 34.7 % (32.0-36.0); MONO % 5.6 % (0.0-8.0); NEUT % 65.4 % (16.0-70.0); PLATELET COUNT 447 TH/MM3 (150-450); RED BLOOD COUNT 5.51 MIL/MM3 (4.50-5.90); RED CELL DISTRIBUTION WIDTH 13.5 % (11.6-17.2); RETIC % 0.6 % (0.4-3.0); REVIEW FLAG FINAL; WHITE BLOOD COUNT 6.9 TH/MM3 (4.0-11.0)
--- NOTE | 2016-08-28 17:24 | PD ---
Data Data Last Documented VS Vital Signs Date Time Temp Pulse Resp B/P Pulse Ox O2 Delivery O2 Flow Rate FiO2 08/28/16 16:47 16 100 Room Air 08/28/16 16:12 97.9 84 154/100 Orders Complete Blood Count With Diff (08/28/16 16:26) Comprehensive Metabolic Panel (08/28/16 16:26) Retic Count (08/28/16 16:26) Ecg Monitoring (08/28/16 16:26) Iv Access Insert/Monitor (08/28/16 16:26) Oximetry (08/28/16 16:26) Sodium Chloride 0.9% Flush (Ns Flush) (08/28/16 16:30) Chest, Single Ap (08/28/16 16:38) Hemoglobin Electrophoresis (08/28/16 16:52) Ketorolac Inj (Toradol Inj) (08/28/16 17:00) Labs Laboratory Tests Test 08/28/16 16:45 White Blood Count 6.9 TH/MM3 Red Blood Count 5.51 MIL/MM3 Hemoglobin 15.3 GM/DL Hematocrit 44.2 % Mean Corpuscular Volume 80.2 FL Mean Corpuscular Hemoglobin 27.9 PG Mean Corpuscular Hemoglobin 34.7 % Concent Red Cell Distribution Width 13.5 % Platelet Count 447 TH/MM3 Mean Platelet Volume 8.3 FL Neutrophils (%) (Auto) 65.4 % Lymphocytes (%) (Auto) 26.4 % Monocytes (%) (Auto) 5.6 % Eosinophils (%) (Auto) 2.0 % Basophils (%) (Auto) 0.6 % Neutrophils # (Auto) 4.5 TH/MM3 Lymphocytes # (Auto) 1.8 TH/MM3 Monocytes # (Auto) 0.4 TH/MM3 Eosinophils # (Auto) 0.1 TH/MM3 Basophils # (Auto) 0.0 TH/MM3 CBC Comment DIFF FINAL Differential Comment Reticulocyte Count 0.6 % Absolute Reticulocyte Count 34.9 MIL/L MDM Supervised Visit with BUZZ: Yes Narrative Course The history, exam, and medical decision-making in the associated midlevel provider note were completed with my assistance. I reviewed and agree with the findings presented. I attest that I had a [id number] encounter with the patient on the same day, and personally performed and documented my assessment and findings in the medical record. *My assessment and Findings: This is a 31-year-old male who presents to the emergency department with reported sickle cell disease reporting pain in his legs. I'm pretty concerned because the patient in the past has had a normal hemoglobin on every visit. His sickle screen has been positive that we've never checked a hemoglobin electrophoresis. He has had 39 prescriptions for controlled substances from 23 providers in the past year. Most of these have been ER providers. He doesn't follow with a auto roller. He has several red flags for drug-seeking behavior. I explained to him my concern that we come to a conclusive diagnosis regarding his sickle cell disease. We sent a hemoglobin electrophoresis today and we will call him with the results. Patient was upset with my discussion with him regarding my concern for opiate dependence and his e -force record. I said I just wanted to be honest with him regarding the addictive potential of opiate medicines and my concern that he was receiving them from multiple different providers. Scripts No Active Prescriptions or Reported Meds Yesy Payne MD Aug 28, 2016 17:24
[2016-08-28 17:35] LABS: ANION GAP 7 MEQ/L (5-15); AST (GOT) 11 U/L (15-37); BICARBONATE 28.4 MEQ/L (21.0-32.0); BLOOD UREA NITROGEN 10 MG/DL (7-18); CHLORIDE 104 MEQ/L (98-107); GLOMERULAR FILTRATION RATE 99 ML/MIN (>89); POTASSIUM 3.9 MEQ/L (3.5-5.1); SODIUM (NA) 139 MEQ/L (136-145)
[2016-08-28 17:38] LABS: ALKALINE PHOSPHATASE 110 U/L (45-117); ALT (GPT) 23 U/L (12-78); TOTAL BILIRUBIN ADULT 0.3 MG/DL (0.2-1.0)
[2016-08-28] MEDS ORDERED: NAPR500T PO (17:59)
--- NOTE | 2016-08-28 18:25 | RADRPT ---
EXAM DATE/TIME: 08/28/2016 16:40 [facility] COMPARISON: CHEST SINGLE AP, June 26, 2016, 17:13. INDICATIONS : Chest pains. MEDICAL HISTORY : Sickle Cell disease. SURGICAL HISTORY : None. ENCOUNTER: Initial ACUITY: 1 day PAIN SCORE: 7/10 LOCATION: Right lower chest FINDINGS: A single view of the chest demonstrates the lungs to be symmetrically aerated without evidence of mas s, infiltrate or effusion. The cardiomediastinal contours are unremarkable. Osseous structures are intact. CONCLUSION: No acute disease. Yosi Parikh MD on August 28, 2016 at 18:22 Board Certified Radiologist. This report was verified electronically.
[2016-09-02 18:23] LABS: HEMOGLOBIN A 61.7 % (95.8-98.0); HEMOGLOBIN A2 3.4 % (2.0-3.3)
--- NOTE | 2016-09-03 10:49 | ED.CB ---
ED Call Back Communication I attempted to call this patient but his voice mail was not working. We will send the patient a letter. His hemoglobin electrophoresis demonstrates that he has SICKLE CELL TRAIT and not sickle cell disease. Please note this for future visits. Yesy Payne MD Sep 03, 2016 10:49
== END 2016-08-28 18:51 | disposition home or self-care (01) ==
LOC: NEPC 16:10
DX: M79.605 Pain in left leg (principal); M79.604 Pain in right leg; R07.81 Pleurodynia; D57.1 Sickle-cell disease without crisis; J45.909 Unspecified asthma, uncomplicated; F17.210 Nicotine dependence, cigarettes, uncomplicated
CPT/HCPCS: 71010; 80053; 82550; 83020; 85025; 85044; 96374; 99283; J1885; 85660

== ENCOUNTER 2017-03-02 00:54 | Emergency (ER) | payer SELFPAY ==
[~2017-03-02 00:54] MED LIST changes: -AZIT250T3 PO; -BENZ100 PO; -HYDR-3533 PO; +NAPR500T PO
[2017-03-02 00:56] VITALS: BP 150/94; PULSE 76; RESP 16; TEMP 99.1; O2SAT 99
[2017-03-02] MEDS ORDERED: HYDROmorphone HCL PF 1 MG/ML VIAL ONE (02:04)
[2017-03-02] MEDS ORDERED: HYDROmorphone HCL PF 1 MG/ML VIAL IV ONE (03:13)
[2017-03-02] MEDS ORDERED: KETOROLAC TROMETHAMINE 30 MG/ML (IVP) VIAL IV PUSH ONE (03:45)
[2017-03-02 03:53] LABS: APTT (PATIENT) 28.2 SEC (24.3-30.1)
[2017-03-02] MEDS: KETOROLAC TROMETHAMINE 30 MG/ML (IVP) VIAL IV PUSH SCH (03:53)
[2017-03-02 03:55] LABS: AUTOMATED NEUTROPHIL # 5.5 TH/MM3 (1.8-7.7); BASOPHIL # 0.1 TH/MM3 (0-0.2); BASOPHIL % 0.8 % (0.0-2.0); EOSINOPHIL # 0.1 TH/MM3 (0-0.4); EOSINOPHIL % 1.1 % (0.0-4.0); HEMATOCRIT 45.4 % (39.0-51.0); HEMO FLAGS DIFF FINAL; LYMPH % 29.6 % (9.0-44.0); LYMPHOCYTE # 2.7 TH/MM3 (1.0-4.8); MEAN CORPUSCULAR HEMOGLOBIN 28.1 PG (27.0-34.0); MEAN CORPUSCULAR HGB CONC 34.7 % (32.0-36.0); MONO % 7.5 % (0.0-8.0); PLATELET COUNT 414 TH/MM3 (150-450); RED CELL DISTRIBUTION WIDTH 14.1 % (11.6-17.2)
[2017-03-02 04:33] LABS: ALKALINE PHOSPHATASE 117 U/L (45-117); ALT (GPT) 20 U/L (12-78); ANION GAP 8 MEQ/L (5-15); AST (GOT) 11 U/L (15-37); BICARBONATE 28.2 MEQ/L (21.0-32.0); BLOOD UREA NITROGEN 10 MG/DL (7-18); CHLORIDE 104 MEQ/L (98-107); CREATINE KINASE 147 U/L (39-308); GLOMERULAR FILTRATION RATE 106 ML/MIN (>89); POTASSIUM 3.4 MEQ/L (3.5-5.1); SODIUM (NA) 140 MEQ/L (136-145); TOTAL BILIRUBIN ADULT 0.5 MG/DL (0.2-1.0)
--- NOTE | 2017-03-02 04:39 | PD ---
HPI Chief Complaint: Pain: Acute or Chronic Time Seen by Provider: 04:17 Travel History International Travel<30 days: No Contact w/Intl Traveler<30days: No Traveled to known affect area: No History of Present Illness HPI Patient is a 32-year-old male who presents to emergency room with complaints of sickle cell crisis. Patient reports that he follow-up with running instructor for sickle cell disease, reports that around 5 PM tonight, patient began to have pain to his left chest as well as left leg. Patient reports that his joints in his leg feels achy. Patient reports that sharp stabbing sensation to the left side of his chest. Reports no shortness of breath or fevers or chills with the symptoms. Patient reports that symptoms are typical for his sickle cell crisis pain. PFSH Past Medical History Asthma: Yes Diminished Hearing: No Respiratory: Yes (ASTHMA) Immunizations Current: No Sickle Cell Disease: Yes Social History Alcohol Use: Yes (on occasion) Tobacco Use: Yes (1/2 ppd) Substance Use: No Allergies-Medications (Allergen,Severity, Reaction): Coded Allergies: No Known Allergies (Unverified , 08/28/16) Reported Meds & Prescriptions Reported Meds & Active Scripts Active Naproxen 500 Mg Tab 500 Mg PO BID 7 Days Review of Systems General / Constitutional: No: Fever Eyes: No: Visual changes HENT: No: Headaches Cardiovascular: Positive: Chest Pain or Discomfort Respiratory: Positive: Shortness of Breath Gastrointestinal: No: Abdominal Pain Genitourinary: No: Dysuria Musculoskeletal: Positive: Pain (left sided joint pain) Skin: No Rash Neurologic: No: Weakness Psychiatric: No: Depression Endocrine: No: Polydipsia Hematologic/Lymphatic: No: Easy Bruising Physical Exam Narrative GENERAL: mild distress SKIN: Focused skin assessment warm/dry. HEAD: Atraumatic. Normocephalic. EYES: Pupils equal and round. No scleral icterus. No injection or drainage. ENT: No nasal bleeding or discharge. Mucous membranes pink and moist. NECK: Trachea midline. No JVD. CARDIOVASCULAR: Regular rate and rhythm. No murmur appreciated. RESPIRATORY: No accessory muscle use. Clear to auscultation. Breath sounds equal bilaterally. GASTROINTESTINAL: Abdomen soft, non-tender, nondistended. Hepatic and splenic margins not palpable. MUSCULOSKELETAL: No obvious deformities. No clubbing. No cyanosis. No edema. Patient with no calf tenderness NEUROLOGICAL: Awake and alert. No obvious cranial nerve deficits. Motor grossly within normal limits. Normal speech. PSYCHIATRIC: Appropriate mood and affect; insight and judgment normal. Data Data Last Documented VS Vital Signs Date Time Temp Pulse Resp B/P (MAP) Pulse Ox O2 Delivery O2 Flow Rate FiO2 03/02/17 06:30 03/02/17 00:56 99.1 76 16 99 Orders Orders Hydromorphone Pf Inj (Dilaudid Pf Inj) (03/02/17 02:04) Ketorolac Inj (Toradol Inj) (03/02/17 03:45) Ketorolac Inj (Toradol Inj) (03/02/17 03:13) Hydromorphone Pf Inj (Dilaudid Pf Inj) (03/02/17 03:13) Complete Blood Count With Diff (03/02/17 02:08) Creatine Kinase (Cpk) (03/02/17 02:08) Troponin I (03/02/17 02:08) Act Partial Throm Time (Ptt) (03/02/17 02:08) D-Dimer (03/02/17 02:08) Prothrombin Time / Inr (Pt) (03/02/17 02:08) Comprehensive Metabolic Panel (03/02/17 02:08) Hydromorphone Pf Inj (Dilaudid Pf Inj) (03/02/17 04:45) Chest, Single Ap (03/02/17 04:38) Electrocardiogram (03/02/17 ) Labs Laboratory Tests Test 03/02/17 02:08 White Blood Count 9.0 TH/MM3 Red Blood Count 5.60 MIL/MM3 Hemoglobin 15.8 GM/DL Hematocrit 45.4 % Mean Corpuscular Volume 81.0 FL Mean Corpuscular Hemoglobin 28.1 PG Mean Corpuscular Hemoglobin Concent 34.7 % Red Cell Distribution Width 14.1 % Platelet Count 414 TH/MM3 Mean Platelet Volume 7.9 FL Neutrophils (%) (Auto) 61.0 % Lymphocytes (%) (Auto) 29.6 % Monocytes (%) (Auto) 7.5 % Eosinophils (%) (Auto) 1.1 % Basophils (%) (Auto) 0.8 % Neutrophils # (Auto) 5.5 TH/MM3 Lymphocytes # (Auto) 2.7 TH/MM3 Monocytes # (Auto) 0.7 TH/MM3 Eosinophils # (Auto) 0.1 TH/MM3 Basophils # (Auto) 0.1 TH/MM3 CBC Comment DIFF FINAL Differential Comment Prothrombin Time 11.0 SEC Prothromb Time International Ratio 1.0 RATIO Activated Partial Thromboplast Time 28.2 SEC D-Dimer Quantitative (PE/DVT) 0.37 MG/L FEU Blood Urea Nitrogen 10 MG/DL Creatinine 0.99 MG/DL Random Glucose 107 MG/DL Total Protein 8.6 GM/DL Albumin 4.4 GM/DL Calcium Level 9.2 MG/DL Alkaline Phosphatase 117 U/L Aspartate Amino Transf (AST/SGOT) 11 U/L Alanine Aminotransferase (ALT/SGPT) 20 U/L Total Bilirubin 0.5 MG/DL Sodium Level 140 MEQ/L Potassium Level 3.4 MEQ/L Chloride Level 104 MEQ/L Carbon Dioxide Level 28.2 MEQ/L Anion Gap 8 MEQ/L Estimat Glomerular Filtration Rate 106 ML/MIN Total Creatine Kinase 147 U/L Troponin I LESS THAN 0.02 NG/ML MDM Medical Decision Making Medical Screen Exam Complete: Yes Emergency Medical Condition: Yes Medical Record Reviewed: Yes Interpretation(s) EKG at 0109: NSR at 65bpm, qt/qtc: 363/375, nonspecific st seg changes (EKG similar to previous ekg from 06/26/16) Differential Diagnosis Differential includes sickle cell crisis, ACS, pneumothorax, pneumonia, electrolyte abnormality Narrative Course Patient is a 32-year-old male who presents to emergency room with complaints of sickle cell crisis. Reports that every time he has sickle cell crisis, he has left sided chest pain as well as left leg and joint pain. Reports that the symptoms are exactly the same as normal his normal sickle cell crisis. Patient was placed on a assistant manager quality management. Lab work including reticulocyte count ordered. Patient was ordered IV fluids, pain medications. Laboratory Tests Test 03/02/17 02:08 White Blood Count 9.0 TH/MM3 (4.0-11.0) Red Blood Count 5.60 MIL/MM3 (4.50-5.90) Hemoglobin 15.8 GM/DL (13.0-17.0) Hematocrit 45.4 % (39.0-51.0) Mean Corpuscular Volume 81.0 FL (80.0-100.0) Mean Corpuscular Hemoglobin 28.1 PG (27.0-34.0) Mean Corpuscular Hemoglobin Concent 34.7 % (32.0-36.0) Red Cell Distribution Width 14.1 % (11.6-17.2) Platelet Count 414 TH/MM3 (150-450) Mean Platelet Volume 7.9 FL (7.0-11.0) Neutrophils (%) (Auto) 61.0 % (16.0-70.0) Lymphocytes (%) (Auto) 29.6 % (9.0-44.0) Monocytes (%) (Auto) 7.5 % (0.0-8.0) Eosinophils (%) (Auto) 1.1 % (0.0-4.0) Basophils (%) (Auto) 0.8 % (0.0-2.0) Neutrophils # (Auto) 5.5 TH/MM3 (1.8-7.7) Lymphocytes # (Auto) 2.7 TH/MM3 (1.0-4.8) Monocytes # (Auto) 0.7 TH/MM3 (0-0.9) Eosinophils # (Auto) 0.1 TH/MM3 (0-0.4) Basophils # (Auto) 0.1 TH/MM3 (0-0.2) CBC Comment DIFF FINAL Differential Comment Prothrombin Time 11.0 SEC (9.8-11.6) Prothromb Time International Ratio 1.0 RATIO Activated Partial Thromboplast Time 28.2 SEC (24.3-30.1) D-Dimer Quantitative (PE/DVT) 0.37 MG/L FEU (0.00-0.50) Blood Urea Nitrogen 10 MG/DL (7-18) Creatinine 0.99 MG/DL (0.60-1.30) Random Glucose 107 MG/DL (74-106) Total Protein 8.6 GM/DL (6.4-8.2) Albumin 4.4 GM/DL (3.4-5.0) Calcium Level 9.2 MG/DL (8.5-10.1) Alkaline Phosphatase 117 U/L (45-117) Aspartate Amino Transf (AST/SGOT) 11 U/L (15-37) Alanine Aminotransferase (ALT/SGPT) 20 U/L (12-78) Total Bilirubin 0.5 MG/DL (0.2-1.0) Sodium Level 140 MEQ/L (136-145) Potassium Level 3.4 MEQ/L (3.5-5.1) Chloride Level 104 MEQ/L (98-107) Carbon Dioxide Level 28.2 MEQ/L (21.0-32.0) Anion Gap 8 MEQ/L (5-15) Estimat Glomerular Filtration Rate 106 ML/MIN (>89) Total Creatine Kinase 147 U/L (39-308) Troponin I LESS THAN 0.02 NG/ML All labs and all studies reviewed, patient reports that he is feeling much better at this time. Patient reports resolution of symptoms, he requests to be discharged to home. He'll follow-up with his primary care doctor and is and will return to emergency room as needed. Signs and symptoms of when to return to emergency room was reviewed with in patient detail. Diagnosis Primary Impression: Sickle cell anemia with crisis Patient Instructions: Narcotic given in the ED, General Instructions Additional Instructions: Please follow up with your running instructor in 24-48 hours Return to ER as needed or if symptoms return Please follow up with your primary care doctor Disposition: 01 DISCHARGE HOME Condition: Stable Rosmery Avendano DO Mar 02, 2017 04:39
[2017-03-02] MEDS ORDERED: HYDROmorphone HCL PF 1 MG/ML VIAL IVS ONE (04:45)
--- NOTE | 2017-03-02 05:52 | RADRPT ---
EXAM DATE/TIME: 03/02/2017 04:41 [facility] COMPARISON: CHEST SINGLE AP, August 28, 2016, 16:40. INDICATIONS : Chest pain. MEDICAL HISTORY : Sickle Cell disease. SURGICAL HISTORY : None. ENCOUNTER: Initial ACUITY: 1 day PAIN SCORE: 6/10 LOCATION: Bilateral chest FINDINGS: A single view of the chest demonstrates the lungs to be symmetrically aerated without evidence of mas s or infiltrate. Mild blunting of the right costophrenic angle is new from the prior study. The cardi omediastinal contours are unremarkable. Osseous structures are intact. CONCLUSION: New tiny right pleural effusion. Otherwise, normal exam. Cornelius Taveras Jr., MD on March 02, 2017 at 5:50 Board Certified Radiologist. This report was verified electronically.
--- NOTE | 2017-03-02 14:09 | EKG ---
Date Performed: 03/02/2017 Time Performed: 01:09:28 PTAGE: 32 years EKG: Sinus rhythm NONSPECIFIC ST ELEVATION BORDERLINE ECG Compared to prior tracing no significant change PREVIOUS TRACING : 06/26/2016 17.33 DOCTOR: Wesley Corbin Interpretating Date/Time 03/02/2017 14:07:00
== END 2017-03-02 06:31 | disposition home or self-care (01) ==
LOC: NEPE 00:54
DX: D57.00 Hb-SS disease with crisis, unspecified (principal); R07.9 Chest pain, unspecified; M79.605 Pain in left leg; M25.50 Pain in unspecified joint; J90 Pleural effusion, not elsewhere classified; J45.909 Unspecified asthma, uncomplicated; F17.200 Nicotine dependence, unspecified, uncomplicated
CPT/HCPCS: 71010; 80053; 82550; 84484; 85025; 85379; 85610; 85730; 93005; 96374; 96375; 96376; 99284; J1170; J1885

== ENCOUNTER 2017-05-24 20:57 | Emergency (ER) | payer SELFPAY ==
[~2017-05-24 20:57] MED LIST changes: -NAPR500T PO; +NAPR500T2 PO
[2017-05-24 20:58] VITALS: BP 147/85; PULSE 72; RESP 16; TEMP 98.7; O2SAT 99
[2017-05-24] MEDS ORDERED: SODIUM CHLOR 0.9% 1000 ML INJ 1,000 ML IV ONE (21:35)
--- NOTE | 2017-05-24 21:35 | PD ---
HPI Chief Complaint: Sickle Cell Time Seen by Provider: 21:32 Travel History International Travel<30 days: No Contact w/Intl Traveler<30days: No Traveled to known affect area: No History of Present Illness HPI 32-year-old male with history of sickle cell disease presents emergency department for evaluation of bilateral leg pain. This began this morning. Patient states this is typical for a crisis. Patient states that the days progressed the pain is Worse. He Rates It an 8 Out Of 10, Constant, Aching. He Is Also Having Some Epigastric, Substernal Pain. It Is Not Radiating Anywhere. He Denies Shortness of Breath. He Does Rate the pain a 2Out Of 10, Dull Ache. This has Also Occurred before with Sickle Cell Crisis for Him. He Reports No Fever or Chills. He Has No Other Symptoms to Report. [facility]LY [facility] Past Medical History Asthma: Yes Diminished Hearing: No Respiratory: Yes (ASTHMA) Immunizations Current: No Sickle Cell Disease: Yes Tetanus Vaccination: Unknown Influenza Vaccination: No Past Surgical History Surgical History: No Previous Surgery Social History Alcohol Use: Yes (on occasion) Tobacco Use: Yes (1/2 ppd) Substance Use: No Allergies-Medications (Allergen,Severity, Reaction): Coded Allergies: No Known Allergies (Unverified , 08/28/16) Reported Meds & Prescriptions Reported Meds & Active Scripts Active Naproxen 500 Mg Tab 500 Mg PO BID 7 Days Review of Systems Except as stated in HPI: all other systems reviewed are Neg Physical Exam Narrative GENERAL: Well-nourished male patient, ambulatory and in no acute distress. SKIN: Focused skin assessment warm/dry. HEAD: Atraumatic. Normocephalic. EYES: Pupils equal and round. No scleral icterus. No injection or drainage. ENT: No nasal bleeding or discharge. Mucous membranes pink and moist. NECK: Trachea midline. No JVD. CARDIOVASCULAR: Regular rate and rhythm. No murmur appreciated. RESPIRATORY: No accessory muscle use. Clear to auscultation. Breath sounds equal bilaterally. GASTROINTESTINAL: Abdomen soft, non-tender, nondistended. Hepatic and splenic margins not palpable. MUSCULOSKELETAL: No obvious deformities. No clubbing. No cyanosis. No edema. NEUROLOGICAL: Awake and alert. No obvious cranial nerve deficits. Motor grossly within normal limits. Normal speech. PSYCHIATRIC: Appropriate mood and affect; insight and judgment normal. Data Data Last Documented VS Vital Signs Date Time Temp Pulse Resp B/P (MAP) Pulse Ox O2 Delivery O2 Flow Rate FiO2 05/24/17 20:58 98.7 72 16 147/85 (105) 99 Room Air Orders Orders Complete Blood Count With Diff (05/24/17 21:15) Comprehensive Metabolic Panel (05/24/17 21:15) Retic Count (05/24/17 21:15) Troponin I (05/24/17 21:15) Ckmb (Isoenzyme) Profile (05/24/17 21:15) Electrocardiogram (05/24/17 ) Chest, Pa & Lat (05/24/17 21:15) Ondansetron Inj (Zofran Inj) (05/24/17 21:45) Sodium Chloride 0.9% Flush (Ns Flush) (05/24/17 21:45) Sodium Chlor 0.9% 1000 Ml Inj (Ns 1000 M (05/24/17 21:35) Morphine Inj (Morphine Inj) (05/24/17 21:45) CKMB (05/24/17 21:35) CKMB% (05/24/17 21:35) Ketorolac Inj (Toradol Inj) (05/24/17 22:30) Ed Discharge Order (05/24/17 22:29) Labs Laboratory Tests Test 05/24/17 21:35 White Blood Count 10.2 TH/MM3 Red Blood Count 5.12 MIL/MM3 Hemoglobin 14.3 GM/DL Hematocrit 41.9 % Mean Corpuscular Volume 81.8 FL Mean Corpuscular Hemoglobin 27.8 PG Mean Corpuscular Hemoglobin Concent 34.0 % Red Cell Distribution Width 13.5 % Platelet Count 367 TH/MM3 Mean Platelet Volume 8.1 FL Neutrophils (%) (Auto) 62.0 % Lymphocytes (%) (Auto) 27.9 % Monocytes (%) (Auto) 7.3 % Eosinophils (%) (Auto) 2.1 % Basophils (%) (Auto) 0.7 % Neutrophils # (Auto) 6.4 TH/MM3 Lymphocytes # (Auto) 2.9 TH/MM3 Monocytes # (Auto) 0.8 TH/MM3 Eosinophils # (Auto) 0.2 TH/MM3 Basophils # (Auto) 0.1 TH/MM3 CBC Comment DIFF FINAL Differential Comment Reticulocyte Count 1.1 % Absolute Reticulocyte Count 54.1 MIL/L Blood Urea Nitrogen 9 MG/DL Creatinine 0.92 MG/DL Random Glucose 110 MG/DL Total Protein 7.8 GM/DL Albumin 4.0 GM/DL Calcium Level 8.8 MG/DL Alkaline Phosphatase 110 U/L Aspartate Amino Transf (AST/SGOT) 18 U/L Alanine Aminotransferase (ALT/SGPT) 17 U/L Total Bilirubin 0.2 MG/DL Sodium Level 139 MEQ/L Potassium Level 3.6 MEQ/L Chloride Level 106 MEQ/L Carbon Dioxide Level 26.4 MEQ/L Anion Gap 7 MEQ/L Estimat Glomerular Filtration Rate 115 ML/MIN Total Creatine Kinase 423 U/L Troponin I LESS THAN 0.02 NG/ML MDM Medical Decision Making Medical Screen Exam Complete: Yes Emergency Medical Condition: Yes Medical Record Reviewed: Yes Differential Diagnosis Sickle cell disease versus sickle cell crisis versus chronic pain Narrative Course 32-year-old male presents to the emergency department for evaluation of bilateral leg pain, consistent with previous sickle cell crisis. Patient is also having a dull chest/epigastric pain which is also consistent for his symptoms with previous crises. Patient is treated for pain. Lab work and x- ray are ordered. Last Impressions Chest X-Ray 05/24/172114 Signed Impressions: Service Date/Time: Wednesday, May 24, 2017 21:22 - CONCLUSION: 1. No acute findings. Renny Hines MD Laboratory Tests Test 05/24/17 21:35 White Blood Count 10.2 TH/MM3 Red Blood Count 5.12 MIL/MM3 Hemoglobin 14.3 GM/DL Hematocrit 41.9 % Mean Corpuscular Volume 81.8 FL Mean Corpuscular Hemoglobin 27.8 PG Mean Corpuscular Hemoglobin Concent 34.0 % Red Cell Distribution Width 13.5 % Platelet Count 367 TH/MM3 Mean Platelet Volume 8.1 FL Neutrophils (%) (Auto) 62.0 % Lymphocytes (%) (Auto) 27.9 % Monocytes (%) (Auto) 7.3 % Eosinophils (%) (Auto) 2.1 % Basophils (%) (Auto) 0.7 % Neutrophils # (Auto) 6.4 TH/MM3 Lymphocytes # (Auto) 2.9 TH/MM3 Monocytes # (Auto) 0.8 TH/MM3 Eosinophils # (Auto) 0.2 TH/MM3 Basophils # (Auto) 0.1 TH/MM3 CBC Comment DIFF FINAL Differential Comment Reticulocyte Count 1.1 % Absolute Reticulocyte Count 54.1 MIL/L Blood Urea Nitrogen 9 MG/DL Creatinine 0.92 MG/DL Random Glucose 110 MG/DL Total Protein 7.8 GM/DL Albumin 4.0 GM/DL Calcium Level 8.8 MG/DL Alkaline Phosphatase 110 U/L Aspartate Amino Transf (AST/SGOT) 18 U/L Alanine Aminotransferase (ALT/SGPT) 17 U/L Total Bilirubin 0.2 MG/DL Sodium Level 139 MEQ/L Potassium Level 3.6 MEQ/L Chloride Level 106 MEQ/L Carbon Dioxide Level 26.4 MEQ/L Anion Gap 7 MEQ/L Estimat Glomerular Filtration Rate 115 ML/MIN Total Creatine Kinase 423 U/L Troponin I LESS THAN 0.02 NG/ML Upon reassessment, patient's pain has decreased however he does report some residual pain in his lower extremities. Lab work is without acute concern. I' ll give the patient is a Toradol and he'll be discharged home. Follow primary care provider return immediately with acute worsening symptoms. Diagnosis Primary Impression: Leg pain, bilateral Additional Impression: Sickle cell anemia with pain Referrals: Primary Care Physician Patient Instructions: General Instructions, Sickle Cell Disease (GEN) Additional Instructions: Maintain adequate oral hydration Follow-up with a primary care provider Return immediately with any acute worsening of symptoms. Med/Other Pt SpecificInfo: No Change to Meds Condition: Stable ReedEsteban lindojerson BELLE May 24, 2017 21:35
--- NOTE | 2017-05-24 21:40 | RADRPT ---
EXAM DATE/TIME: 05/24/2017 21:22 [facility] COMPARISON: CHEST PA & LAT, June 20, 2016, 23:23. INDICATIONS : Short of breath MEDICAL HISTORY : Sickle Cell disease. SURGICAL HISTORY : None. ENCOUNTER: Initial ACUITY: 1 day PAIN SCORE: 0/10 LOCATION: chest FINDINGS: PA and lateral views of the chest demonstrate the lungs to be symmetrically aerated without evidence of mass, infiltrate or effusion. The cardiomediastinal contours are unremarkable. Osseous structure s are intact. CONCLUSION: 1. No acute findings. Renny Hines MD on May 24, 2017 at 21:37 Board Certified Radiologist. This report was verified electronically.
[2017-05-24] MEDS ORDERED: SODIUM CHLORIDE 0.9% FLUSH 10 ML FLUSH IVF PRN (21:45)
[2017-05-24] MEDS ORDERED: ONDANSETRON HCL 4 MG/2 ML VIAL IVP ONE (21:45)
[2017-05-24] MEDS ORDERED: MORPHINE SULFATE 8 MG/ML INJ IV PUSH ONE (21:45)
[2017-05-24 21:53] LABS: AUTOMATED NEUTROPHIL # 6.4 TH/MM3 (1.8-7.7); BASOPHIL # 0.1 TH/MM3 (0-0.2); BASOPHIL % 0.7 % (0.0-2.0); EOSINOPHIL # 0.2 TH/MM3 (0-0.4); EOSINOPHIL % 2.1 % (0.0-4.0); HEMATOCRIT 41.9 % (39.0-51.0); HEMO FLAGS DIFF FINAL; LYMPH % 27.9 % (9.0-44.0); LYMPHOCYTE # 2.9 TH/MM3 (1.0-4.8); MEAN CELL VOLUME 81.8 FL (80.0-100.0); MEAN CORPUSCULAR HEMOGLOBIN 27.8 PG (27.0-34.0); MONO % 7.3 % (0.0-8.0); PLATELET COUNT 367 TH/MM3 (150-450); RED BLOOD COUNT 5.12 MIL/MM3 (4.50-5.90); RED CELL DISTRIBUTION WIDTH 13.5 % (11.6-17.2); RETIC % 1.1 % (0.4-3.0); REVIEW FLAG FINAL; WHITE BLOOD COUNT 10.2 TH/MM3 (4.0-11.0)
[2017-05-24 22:18] LABS: ANION GAP 7 MEQ/L (5-15); AST (GOT) 18 U/L (15-37); BICARBONATE 26.4 MEQ/L (21.0-32.0); BLOOD UREA NITROGEN 9 MG/DL (7-18); CHLORIDE 106 MEQ/L (98-107); GLOMERULAR FILTRATION RATE 115 ML/MIN (>89); POTASSIUM 3.6 MEQ/L (3.5-5.1); SODIUM (NA) 139 MEQ/L (136-145)
[2017-05-24 22:19] LABS: ALT (GPT) 17 U/L (12-78)
[2017-05-24 22:23] LABS: ALKALINE PHOSPHATASE 110 U/L (45-117); CREATINE KINASE 423 U/L (39-308); TOTAL BILIRUBIN ADULT 0.2 MG/DL (0.2-1.0)
[2017-05-24] MEDS ORDERED: KETOROLAC TROMETHAMINE 30 MG/ML (IVP) VIAL IV PUSH ONE (22:30)
[2017-05-24 22:35] LABS: CKMB 2.6 NG/ML (0.5-3.6)
[2017-05-24 22:36] VITALS: BP 126/80; PULSE 75; RESP 14; O2SAT 100
--- NOTE | 2017-05-25 12:56 | EKG ---
Date Performed: 05/24/2017 Time Performed: 21:42:59 PTAGE: 32 years EKG: Sinus rhythm NONSPECIFIC ST ELEVATION Early repolarization Since PREVIOUS TRACING , no significant change noted PREVIOUS TRACIN03/02/2017 01.09 DOCTOR: Sagar Crow Interpretating Date/Time 05/25/2017 12:54:53
== END 2017-05-24 22:28 | disposition home or self-care (01) ==
LOC: NEPE 20:57
DX: D57.00 Hb-SS disease with crisis, unspecified (principal); M79.604 Pain in right leg; M79.605 Pain in left leg; F17.200 Nicotine dependence, unspecified, uncomplicated
CPT/HCPCS: 71020; 80053; 82550; 82552; 84484; 85025; 85044; 93005; 96361; 96374; 96375; 99284; J1885; J2270; J2405; J7030

== ENCOUNTER 2017-06-17 15:33 | Emergency (ER) | payer SELFPAY ==
[~2017-06-17] VITALS: Ht 172.7 cm; Wt 85.0 kg
[2017-06-17 15:36] VITALS: BP 164/90; PULSE 73; RESP 16; TEMP 97.7; O2SAT 97
[2017-06-17] MEDS ORDERED: SODIUM CHLORIDE 0.9% FLUSH 10 ML FLUSH IVF PRN (16:15)
[2017-06-17] MEDS ORDERED: KETOROLAC TROMETHAMINE 30 MG/ML (IVP) VIAL IVP ONE (16:15)
[2017-06-17] MEDS ORDERED: HYDROmorphone HCL PF 2 MG/ML VIAL IV PUSH ONE (16:15)
[2017-06-17] MEDS ORDERED: SODIUM CHLOR 0.9% 1000 ML INJ 1,000 ML IV ONE (16:15)
--- NOTE | 2017-06-17 16:26 | PD ---
HPI Chief Complaint: Sickle Cell Time Seen by Provider: 15:58 Travel History International Travel<30 days: No Contact w/Intl Traveler<30days: No Traveled to known affect area: No History of Present Illness HPI Patient is a 32 year old male presents to the ER for evaluation of pain in bilateral lower extremities starting last night. History of sickle cell disease and currently between hematologists as he moved to the area 2 months ago. Recently we have gone through quite a cold snap in the weather. The patient also states he had a little chest discomfort last night and is getting over the flu. He tried taking an excedrin prior to arrival and it did not help. No SOB, no fevers, no priapism, no injury. States symptoms are moderate , context and associated s/s as above, location as above. Review of his records shows very similar presentations in the past to our facility. PFSH Past Medical History Asthma: Yes Diminished Hearing: No Respiratory: Yes (ASTHMA) Immunizations Current: No Sickle Cell Disease: Yes Tetanus Vaccination: < 5 Years Influenza Vaccination: No Past Surgical History Surgical History: No Previous Surgery Social History Alcohol Use: No Tobacco Use: Yes (<1 ppd) Substance Use: No Allergies-Medications (Allergen,Severity, Reaction): Coded Allergies: No Known Allergies (Unverified Adverse Reaction, Unknown, 06/17/17) Uncoded Allergies: SICKLE CELL TRAIT ONLY (Adverse Reaction, Unknown, 06/17/17) See Electrophoresis from august 2016. Reported Meds & Prescriptions Reported Meds & Active Scripts Active No Active Prescriptions or Reported Medications Review of Systems Except as stated in HPI: all other systems reviewed are Neg Physical Exam Narrative GENERAL: WD/WN in some minimal discomfort. SKIN: Warm and dry. HEAD: Atraumatic. Normocephalic. EYES: Pupils equal and round. No scleral icterus. No injection or drainage. ENT: No nasal bleeding or discharge. Mucous membranes pink and moist. TM's clear bilaterally. NECK: Trachea midline. No JVD. CARDIOVASCULAR: Regular rate and rhythm. RESPIRATORY: No accessory muscle use. Clear to auscultation. Breath sounds equal bilaterally. GASTROINTESTINAL: Abdomen soft, non-tender, nondistended. Hepatic and splenic margins not palpable. MUSCULOSKELETAL: Extremities without clubbing, cyanosis, or edema. No obvious deformities. NEUROLOGICAL: Awake and alert. No obvious cranial nerve deficits. Motor grossly within normal limits. Five out of 5 muscle strength in the arms and legs. Normal speech. PSYCHIATRIC: Appropriate mood and affect; insight and judgment normal. Data Data Last Documented VS Vital Signs Date Time Temp Pulse Resp B/P (MAP) Pulse Ox O2 Delivery O2 Flow Rate FiO2 06/17/17 18:00 71 18 143/88 (106) 99 06/17/17 17:05 Room Air 06/17/17 15:36 97.7 Orders Orders Complete Blood Count With Diff (06/17/17 16:15) Comprehensive Metabolic Panel (06/17/17 16:15) Retic Count (06/17/17 16:15) Chest, Pa & Lat (06/17/17 16:15) Ecg Monitoring (06/17/17 16:15) Iv Access Insert/Monitor (06/17/17 16:15) Oximetry (06/17/17 16:15) Ketorolac Inj (Toradol Inj) (06/17/17 16:15) Sodium Chloride 0.9% Flush (Ns Flush) (06/17/17 16:15) Sodium Chlor 0.9% 1000 Ml Inj (Ns 1000 M (06/17/17 16:15) Hydromorphone Pf Inj (Dilaudid Pf Inj) (06/17/17 16:15) Ed Discharge Order (06/17/17 17:41) Labs Laboratory Tests Test 06/17/17 16:40 White Blood Count 6.9 TH/MM3 Red Blood Count 5.59 MIL/MM3 Hemoglobin 15.1 GM/DL Hematocrit 45.3 % Mean Corpuscular Volume 81.2 FL Mean Corpuscular Hemoglobin 27.0 PG Mean Corpuscular Hemoglobin Concent 33.2 % Red Cell Distribution Width 12.6 % Platelet Count 463 TH/MM3 Mean Platelet Volume 7.7 FL Neutrophils (%) (Auto) 62.9 % Lymphocytes (%) (Auto) 26.9 % Monocytes (%) (Auto) 5.5 % Eosinophils (%) (Auto) 3.2 % Basophils (%) (Auto) 1.5 % Neutrophils # (Auto) 4.3 TH/MM3 Lymphocytes # (Auto) 1.9 TH/MM3 Monocytes # (Auto) 0.4 TH/MM3 Eosinophils # (Auto) 0.2 TH/MM3 Basophils # (Auto) 0.1 TH/MM3 CBC Comment DIFF FINAL Differential Comment Reticulocyte Count 0.9 % Absolute Reticulocyte Count 48.4 MIL/L Blood Urea Nitrogen 9 MG/DL Creatinine 0.78 MG/DL Random Glucose 97 MG/DL Total Protein 8.3 GM/DL Albumin 4.0 GM/DL Calcium Level 9.0 MG/DL Alkaline Phosphatase 119 U/L Aspartate Amino Transf (AST/SGOT) 19 U/L Alanine Aminotransferase (ALT/SGPT) 29 U/L Total Bilirubin 0.3 MG/DL Sodium Level 138 MEQ/L Potassium Level 3.8 MEQ/L Chloride Level 104 MEQ/L Carbon Dioxide Level 27.9 MEQ/L Anion Gap 6 MEQ/L Estimat Glomerular Filtration Rate 139 ML/MIN MDM Medical Decision Making Medical Screen Exam Complete: Yes Emergency Medical Condition: Yes Differential Diagnosis Sickle cell anemia, occlusive crisis, sickle cell trait, bilateral lower extremity cramping, electrolyte abnormality, radiculopathy, cauda equina syndrome excluded clinically. Narrative Course patient was roomed in emergency department, a quick review of his records show that he has been presented for leg pain multiple times in the past and has a history of sickle cell anemia, review of eforsce shows that he has been throughout the [facility] getting oxycodone prescription small prescription some time. Patient's labs returned and showed hemoglobin of 15, at this time all records were loaded from [facility] and his hemoglobin always runs 15, in August the patient had an electrophoresis that was sent from the emergency department which shows 62% hemoglobin A and hbg S (35%) positive consistent with sickle cell trait. 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 He reports no trauma, labs are reassuring, has full nontender range of motion, no back pain or back injury. Given the repeat presentations in the chronic nature of his pain there is no emergent condition that warrants further workup at this time. I discussed with the patient that his symptoms are not from sickle cell anemia and he is actually quite taken aback stated that he's had sickle cell anemia his entire life. I will provide him a copy of his electrophoresis but at this time he is stable for discharge. He is calm and quite pleasant. Is quite possible that he misunderstood his diagnosis of sickle cell trait when given it earlier in life. He requested a follow-up with hematology on happy to provide him the name of the person educational administration teacher. He does have a ride home his is going to drive him home. Diagnosis Primary Impression: Sickle cell trait Additional Impression: Leg pain, bilateral Referrals: [place] MD [facility] Patient Instructions: General Instructions, Leg Pain (ED) Scripts No Active Prescriptions or Reported Meds Disposition: 01 DISCHARGE HOME Condition: Stable Bradley Bonilla MD Jun 17, 2017 16:26
--- NOTE | 2017-06-17 16:45 | RADRPT ---
EXAM DATE/TIME: 06/17/2017 16:30 [facility] COMPARISON: CHEST PA & LAT, May 24, 2017, 21:22. INDICATIONS : Chest and leg pain since yesterday. Short of breath. MEDICAL HISTORY : Sickle Cell disease. SURGICAL HISTORY : None. ENCOUNTER: Initial ACUITY: 2 days PAIN SCORE: 8/10 LOCATION: Bilateral chest FINDINGS: The lungs are clear without infiltrate, nodule, or mass. There is no appreciable pleural effusion fo r technique. Heart and mediastinum are unremarkable. CONCLUSION: No acute cardiopulmonary disease. Aung Caba MD on June 17, 2017 at 16:42 Board Certified Radiologist. This report was verified electronically.
[2017-06-17 16:51] LABS: AUTOMATED NEUTROPHIL # 4.3 TH/MM3 (1.8-7.7); BASOPHIL # 0.1 TH/MM3 (0-0.2); BASOPHIL % 1.5 % (0.0-2.0); EOSINOPHIL # 0.2 TH/MM3 (0-0.4); EOSINOPHIL % 3.2 % (0.0-4.0); HEMATOCRIT 45.3 % (39.0-51.0); HEMOGLOBIN 15.1 GM/DL (13.0-17.0); LYMPH % 26.9 % (9.0-44.0); LYMPHOCYTE # 1.9 TH/MM3 (1.0-4.8); MEAN CELL VOLUME 81.2 FL (80.0-100.0); MEAN CORPUSCULAR HGB CONC 33.2 % (32.0-36.0); MEAN PLATELET VOLUME 7.7 FL (7.0-11.0); MONO % 5.5 % (0.0-8.0); MONOCYTE # 0.4 TH/MM3 (0-0.9); NEUT % 62.9 % (16.0-70.0); PLATELET COUNT 463 TH/MM3 (150-450); RED BLOOD COUNT 5.59 MIL/MM3 (4.50-5.90); RED CELL DISTRIBUTION WIDTH 12.6 % (11.6-17.2); WHITE BLOOD COUNT 6.9 TH/MM3 (4.0-11.0)
[2017-06-17 16:59] LABS: CHLORIDE 104 MEQ/L (98-107); SODIUM (NA) 138 MEQ/L (136-145)
[2017-06-17 17:02] LABS: BICARBONATE 27.9 MEQ/L (21.0-32.0); BLOOD UREA NITROGEN 9 MG/DL (7-18); GLUCOSE,RANDOM 97 MG/DL (74-106)
[2017-06-17 17:03] VITALS: RESP 17; O2SAT 98
[2017-06-17 17:05] VITALS: BP 138/86; PULSE 85; RESP 17; O2SAT 98
[2017-06-17 17:05] LABS: ALT (GPT) 29 U/L (12-78); AST (GOT) 19 U/L (15-37); CREATININE 0.78 MG/DL (0.60-1.30); GLOMERULAR FILTRATION RATE 139 ML/MIN (>89)
[2017-06-17 17:07] LABS: TOTAL BILIRUBIN ADULT 0.3 MG/DL (0.2-1.0); TOTAL PROTEIN 8.3 GM/DL (6.4-8.2)
[2017-06-17 17:08] LABS: ALKALINE PHOSPHATASE 119 U/L (45-117)
[2017-06-17 17:40] VITALS: RESP 18
[2017-06-17 18:00] VITALS: BP 143/88
[2017-06-17 19:37] LABS: RETIC # 48.4 MIL/L (20.0-150.0); RETIC % 0.9 % (0.4-3.0)
== END 2017-06-17 18:12 | disposition home or self-care (01) ==
LOC: PHED 15:33
DX: M79.605 Pain in left leg (principal); M79.604 Pain in right leg; D57.3 Sickle-cell trait; R07.89 Other chest pain; J45.909 Unspecified asthma, uncomplicated; F17.200 Nicotine dependence, unspecified, uncomplicated
CPT/HCPCS: 71046; 80053; 85025; 85044; 96361; 96374; 96375; 99284; J1170; J1885; J7030